=== PATIENT | female | born 2000 | race Caucasian/White ===

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

== ENCOUNTER → 2021-03-21 | Outpatient (CLI) | payer MEDICAID, SELFPAY ==
[2021-03-25 22:06] LABS: Chlamydia By Nucleic Acid AMP Negative (Negative)
[2021-03-26 12:05] LABS: Gonococcus By Nucleic Acid AMP Negative (Negative)
== END | disposition home or self-care (01) ==
LOC: LABSPEC 14:28
PROVIDERS: PCP Nurse Practitioner
DX: O98.319 Other infections with a predominantly sexual mode of transmission complicating pregnancy, unspecified trimester (principal); A56.8 Sexually transmitted chlamydial infection of other sites; A56.00 Chlamydial infection of lower genitourinary tract, unspecified; Z11.3 Encounter for screening for infections with a predominantly sexual mode of transmission; Z3A.00 Weeks of gestation of pregnancy not specified
CPT/HCPCS: 87491; 87591

== ENCOUNTER → 2021-05-20 10:18 | Outpatient (CLI) | payer MEDICAID, SELFPAY | PROVIDERS: PCP Nurse Practitioner | DX: O99.119 Other diseases of the blood and blood-forming organs and certain disorders involving the immune mechanism complicating pregnancy, unspecified trimester (principal); D68.52 Prothrombin gene mutation; I81 Portal vein thrombosis; Z3A.00 Weeks of gestation of pregnancy not specified | CPT/HCPCS: 36415 ==

== ENCOUNTER 2021-06-16 03:25 | Outpatient (CLI) | payer MEDICAID, SELFPAY ==
[2021-06-16] VITALS (33 sets, daily range): BP systolic 110–139; BP diastolic 61–82; PULSE 112–135; TEMP 36.9–37; O2SAT 97–100; BMI 28.4
[2021-06-16 04:05] LABS: Color, Urine Yellow (Yellow); Glucose, Dipstick 1000 mg/dl (Normal); Leukocyte Esterase-Dipstick 25 /ul (Negative); Nitrite-Dipstick Negative (Negative); Occult Blood-Urine Negative /ul (Negative); Protein-Dipstick 100 mg/dl (Negative); Urine Bilirubin Dipstick Negative (Negative); Urine Clarity Sl. Cloudy (Clear); Urine Urobilinogen Normal (Normal)
[2021-06-16 04:09] LABS: Ketone-Dipstick 150 mg/dl (Negative)
[2021-06-16] MEDS: Dext 5%-0.45% NS 1,000 ML 125 ML IV (04:29)
[2021-06-16 04:39] LABS: Mucous, Urine 0 SEEN /hpf (<or=2+); Red Blood Cells-Urine 0 SEEN /hpf (0-5)
[2021-06-16 04:41] LABS: Color, Urine Yellow (Yellow); Glucose, Dipstick 1000 mg/dl (Normal); Leukocyte Esterase-Dipstick Negative /ul (Negative); Nitrite-Dipstick Negative (Negative); Occult Blood-Urine Negative /ul (Negative); Protein-Dipstick 100 mg/dl (Negative); Urine Bilirubin Dipstick Negative (Negative); Urine Clarity Sl. Cloudy (Clear); Urine Urobilinogen Normal (Normal)
[2021-06-16 04:42] LABS: Ketone-Dipstick 150 mg/dl (Negative)
[2021-06-16] MEDS: 0.9% Normal Saline 1,000 ML 999 ML IV ×2 (04:45→06:14)
[2021-06-16 04:47] LABS: Bacteria 4+ /hpf (None Seen); Squamous Epithelial Cells - UA 10-25 SEEN /hpf (5-10); White Blood Cells 5-10 SEEN /hpf (0-5)
[2021-06-16 04:54] LABS: Protein:Creat Ratio 2479 mg/g CRE (0-200)
--- NOTE | 2021-06-16 04:59 | OB.TRI.HP_ITS ---
HPI - General HPI Narrative KELVIN MURPHY, is a 21 F @ 33.4 weeks, who recieves care from [facility] due to TYPE 1 DM poorly controlled. Pt reports started not feeling well around 8pm. pt reports took insulin on 06/15/21 in am but not in PM. pt reports nausea, abdominal pain, SOB. pt denies VB, LOF. Pt reports cramping. Per patient mother- pt had clots in 2016 with first - had Portal vein thrombosis/pancreatitis and now insulin dependent DM. pt has IV filter currently on lovenox. Maternal Data Information Final SABINO: 07/17/21 Gestational age: 32.4 PFSH PFSH Allergy/AdvReac Type Severity Reaction Status Date / Time vitamin K2 Allergy Hives Verified 06/16/21 04:03 Physical Exam Narrative Gen: female in bed, with rapid respirations, labored, oxygen on- unable to complete sentences Abd: gravid, non tender to palpation Limited Bedside ultrasound; RUDY wnl, VERTEX (last ultrasound per patient 06/11/21 5lb 11oz) NST FHR Rate Baby A Baseline: 160-170 bpm Variability:: Minimal Accelerations:: None Decelerations:: Variable NST Reactive:: Non-Reactive FHR Category:: Category II Uterine Activity:: were q2 min- irregular now with fluids running. Assessment & Plan (1) with care elsewhere: QUALIFIERS: Trimester: third trimester Qualified Code(s): Z34.93 - Encounter for supervision of normal , unspecified, third trimester (2) 32 weeks gestation of : (3) DKA, type 1: QUALIFIERS: Diabetes mellitus complication detail: without coma Qualified Code(s): E10.10 - Type 1 diabetes mellitus with ketoacidosis without coma (4) History of blood clots: (5) Acidosis, metabolic: PLAN: @ 32.4 weeks- presents in DKA (initial bs level 339) 1) spoke to [facility] Dr. Gonzalez at [facility]- who gave recommendations until we can transport to [facility] ICU 2) 2 IV LINES- IV Normal Saline Bolus x 2 liters with third NS at 150ml/hr with 40units KCL 3) Blood gases, CMP, CBC, coags, urine, UDS, B hydroxybutarate not able to be performed at [facility] 4) Covid testing 5) Oxygen Non rebreather- changed to NC at 4units 6) ICU bed available at [facility] until transport completed if needed 7) MFM would like [facility]opter Transport but at this time not flying- will find ground crew for transport 8) ICU at [facility] Dr. Garcia to accept patient 9) BICARB 50meq given 10) continue TOCO/FHR monitor (FHR 160s-170 minimal variability) 11) Insulin- 8units bolus given , followed by drip at 3 then changed to 5ml/hr- latest BS 324, trending down. 12) GBS was completed, FFN completed
[2021-06-16] MEDS: 0.9% Normal Saline 1,000 ML 150 ML IV (05:00)
[2021-06-16 05:01] LABS: Allen Test Positive; Base Excess -25 mmol/L (-2 to +2); Bicarbonate 3.8 mmol/L (22-26); Blood Gas Specimen Type ART; FI02 100; O2 Delivery Device NRB; PO2 177 mmHG (75-100); SITE L Radial; SO2 99 % (95-99); Total Carbon Dioxide < 5 mmol/L; pCO2 10.3 mmHg (35-45); pH 7.18 (7.35-7.45)
[2021-06-16 05:01] LABS: Amphetamine Urine VISTA NEGATIVE (<1000 ng/mL); Barbiturate Urine VISTA NEGATIVE (< 200 ng/mL); Benzodiazepine Urine VISTA NEGATIVE (< 200 ng/mL); Cocaine Urine VISTA NEGATIVE (< 300 ng/mL); Ecstacy Urine VISTA NEGATIVE (< 500 ng/mL); Methadone Urine VISTA NEGATIVE (< 300 ng/mL); PCP Urine VISTA NEGATIVE (< 25 ng/mL); THC Urine VISTA NEGATIVE (< 50 ng/mL); Vista UDS pH Range 4
[2021-06-16 05:04] LABS: Absolute Lymphocyte Count 1.16 X10^3/uL (0.83-4.51); Absolute Neutrophil Count 18.5 X10^3/uL (2.0-7.7); Basophil# 0.13 X10^3/uL; Basophil% 0.6 % (0-1); Eosinophil# 0.01 X10^3/uL; Hematocrit 43.5 % (37-47); Hemoglobin 13.5 g/dL (12.0-15.0); Lymphocyte # 1.16 X10^3/ul (0.83-4.51); Lymphocyte % 5.4 % (19-41); Mean Corpuscular Hgb 26.8 pg (27.0-32.0); Mean Corpuscular Volume 86.5 fL (81-99); Mean Platelet Vol. 11.2 fl (6.2-12.0); Monocyte# 1.12 X10^3/uL; Monocyte% 5.2 % (0-10); NRBC Flagged by Analyzer 0 % (0-5); Neutrophil # 18.52 X10^3/uL (2.7-7.7); Platelet Count 315 K/mm3 (150-450); RBC Distribution Width CV 13.2 % (11.6-14.6); RBC Distribution Width SD 40.7 fl (35.1-43.9); Red Blood Count 5.03 M/mm3 (4.2-5.4); White Blood Count 21.5 K/mm3 (4.4-11.0)
[2021-06-16] MEDS: Sodium Bicarbonate 8.4% 50 ML Syringe 50 MEQ IV (05:09)
[2021-06-16 05:30] LABS: AST(SGOT) 8 U/L (15-37); Alanine Aminotransfer ALT/SGPT 12 U/L (13-56); Bedside Glucose 331 mg/dL (70-110); Creatinine, Serum 0.85 mg/dL (0.55-1.02); EST Glomerular Filtration Rate 89 mL/min (>60); Est Glom Filt Rate - Afr Amer 107 mL/min (>60); Estimated Creatinine Clearance 93.42 ml/min; Uric Acid 5.9 mg/dL (2.6-6.0)
[2021-06-16 05:30] LABS: Bedside Glucose 339 mg/dL (70-110)
[2021-06-16 05:30] LABS: Bedside Glucose 330 mg/dL (70-110)
[2021-06-16 05:30] LABS: Bedside Glucose 324 mg/dL (70-110)
[2021-06-16 05:45] LABS: Bedside Glucose 271 mg/dL (70-110)
[2021-06-16 05:57] LABS: Anion Gap 21 (5-15); BUN 10 mg/dL (7-18); BUN/Creat Ratio 11.8 RATIO (10-20); Calcium,Total 9.1 mg/dL (8.5-10.1); Chloride 105 mmol/L (98-107); Creatinine, Serum 0.84 mg/dL (0.55-1.02); EST Glomerular Filtration Rate 89 mL/min (>60); Est Glom Filt Rate - Afr Amer 108 mL/min (>60); Estimated Creatinine Clearance 94.53 ml/min; Glucose 339 mg/dL (74-106); Potassium 4.7 mmol/L (3.5-5.1); Sodium Level 131 mmol/L (136-145)
[2021-06-16] MEDS: KCL 40mEq in 0.9% NS 40 MEQ/1,000 ML IV.SOLN 250 MEQ IV (06:14)
[2021-06-16 06:21] LABS: Bedside Glucose 254 mg/dL (70-110)
[2021-06-16 06:25] LABS: Group B Strep DNA By PCR Negative (Negative); Internal Control PASS; Specimen Processing Control PASS
[2021-06-16 06:41] LABS: Fetal Fibronectin Negative
--- NOTE | 2021-06-16 06:51 | NURSING ---
0545 physicians ambulance transport team arrived to unit. Report given to transport team. 0632 Pt off unit. being transported via squad to [facility] bed 2 [id number] Report called to Tika HOPKINS
[2021-06-16 07:37] LABS: Chlamydia Trachomatis by PCR Negative (Negative); Neisserai gonorrhoeae by PCR Negative (Negative); Probe Check PASS; Sample Adequacy Control PASS; Specimen Processing Control PASS
[2021-06-16 14:04] LABS: HIV - WCH Non-Reactive (Nonreactive); Hepatitis B Surface Antigen Non-Reactive (Nonreactive); Hepatitis C Antibody Non-Reactive (Nonreactive)
[2021-06-17 08:58] LABS: Rubella IgG Non-Reactive (Nonreactive); Syphilis Antibodies Non-reactive
== END 2021-06-16 23:59 | disposition home or self-care (01) ==
LOC: WPOUT 03:30 → WP 03:30
PROVIDERS: PCP Nurse Practitioner; Visit Provider Obstetrics & Gynecology
DX: O24.013 Pre-existing type 1 diabetes mellitus, in pregnancy, third trimester (principal); E10.10 Type 1 diabetes mellitus with ketoacidosis without coma; Z3A.33 33 weeks gestation of pregnancy; Z86.718 Personal history of other venous thrombosis and embolism
CPT/HCPCS: 96361 ×2; 96374; 36415; 36600; 59025; 59050; 76815; 80048; 80307; 81001; 81002; 82565; 82570; 82731; 82803; 82962; 84156; 84450; 84460; 84550; 85025; 86703; 86762; 86780; 86803; 86850; 86900; 86901; 87081; 87340; 87426; 87491; 87591; 87653; 99218; J7030; G0378; J7799

== ENCOUNTER → 2021-06-24 14:23 | Outpatient (CLI) | payer MEDICAID, SELFPAY ==
[2021-06-24 15:02] LABS: Protein, Urine (Random) 47.7 mg/dL (<11.9); Protein:Creat Ratio 227 mg/g CRE (0-200)
[2021-06-24 15:17] LABS: ALB/GLOB Ratio 0.5 RATIO (0.9-2.4); AST(SGOT) 13 U/L (15-37); Alanine Aminotransfer ALT/SGPT 10 U/L (13-56); Albumin, Serum 2.2 g/dL (3.2-5.0); Alkaline Phosphatase 83 U/L (45-117); Anion Gap 7 (5-15); BUN 6 mg/dL (7-18); BUN/Creat Ratio 11.5 RATIO (10-20); Calcium,Total 8.4 mg/dL (8.5-10.1); Chloride 109 mmol/L (98-107); Creatinine, Serum 0.52 mg/dL (0.55-1.02); EST Glomerular Filtration Rate 155 mL/min (>60); Est Glom Filt Rate - Afr Amer 188 mL/min (>60); Globulin 4.4 g/dL (2.2-4.2); Glucose 182 mg/dL (74-106); LDH 160 U/L (84-246); Potassium 3.7 mmol/L (3.5-5.1); Protein, Total 6.6 g/dL (6.4-8.2); Sodium Level 139 mmol/L (136-145); Uric Acid 2.8 mg/dL (2.6-6.0)
== END ==
PROVIDERS: PCP Physician Assistant Medical
DX: O24.013 Pre-existing type 1 diabetes mellitus, in pregnancy, third trimester (principal); O12.13 Gestational proteinuria, third trimester
CPT/HCPCS: 36415; 80053; 82570; 83615; 84156; 84550

== ENCOUNTER 2021-07-01 11:44 | Outpatient (CLI) | payer MEDICAID, SELFPAY ==
[2021-07-01 13:43] LABS: Hematocrit 36.8 % (37-47); Hemoglobin 11.6 g/dL (12.0-15.0); Mean Corp Hgb Conc 31.5 g/dL (32-36); Mean Corpuscular Hgb 26.7 pg (27.0-32.0); Mean Corpuscular Volume 84.6 fL (81-99); Mean Platelet Vol. 11.1 fl (6.2-12.0); Platelet Count 321 K/mm3 (150-450); RBC Distribution Width CV 12.9 % (11.6-14.6); RBC Distribution Width SD 39.6 fl (35.1-43.9); Red Blood Count 4.35 M/mm3 (4.2-5.4); White Blood Count 10.4 K/mm3 (4.4-11.0)
[2021-07-01 14:22] LABS: ALB/GLOB Ratio 0.5 RATIO (0.9-2.4); AST(SGOT) 11 U/L (15-37); Alanine Aminotransfer ALT/SGPT 9 U/L (13-56); Albumin, Serum 2.5 g/dL (3.2-5.0); Alkaline Phosphatase 96 U/L (45-117); Anion Gap 7 (5-15); BUN 11 mg/dL (7-18); BUN/Creat Ratio 17.8 RATIO (10-20); Calcium,Total 8.8 mg/dL (8.5-10.1); Chloride 105 mmol/L (98-107); Creatinine, Serum 0.62 mg/dL (0.55-1.02); EST Glomerular Filtration Rate 128 mL/min (>60); Est Glom Filt Rate - Afr Amer 155 mL/min (>60); Globulin 4.7 g/dL (2.2-4.2); Glucose 104 mg/dL (74-106); LDH 166 U/L (84-246); Potassium 3.8 mmol/L (3.5-5.1); Protein, Total 7.2 g/dL (6.4-8.2); Sodium Level 136 mmol/L (136-145); Uric Acid 3.3 mg/dL (2.6-6.0)
== END 2021-07-01 23:59 | disposition home or self-care (01) ==
PROVIDERS: PCP Physician Assistant Medical; Referring Provider Nurse Practitioner; Visit Provider Nurse Practitioner
DX: O12.10 Gestational proteinuria, unspecified trimester (principal); O24.013 Pre-existing type 1 diabetes mellitus, in pregnancy, third trimester
CPT/HCPCS: 36415; 80053; 83615; 84550; 85027

== ENCOUNTER 2023-02-21 10:14 | Emergency (ER) | payer MEDICAID, SELFPAY ==
[2023-02-21 10:15] VITALS: BP 133/85; PULSE 88; RESP 18; TEMP 36.6; O2SAT 100; BMI 28.5
--- NOTE | 2023-02-21 10:40 | US_ITS ---
HISTORY: ABDOMEN PAIN. TECHNIQUE: Clay scale and color doppler imaging was performed of the right upper quadrant. 116 images. COMPARISON: None. FINDINGS: LIVER: 50.2 cm in length. Homogeneous echotexture without focal lesion demonstrated. No intrahepatic ductal dilatation. MAIN PORTAL VEIN: Patent. COMMON BILE DUCT: 5 mm in diameter. GALLBLADDER: No gallstones. 1 mm wall thickness, within normal limits. No pericholecystic fluid. Sonographic Ken sign negative. PANCREAS: Partially obscured due to overlying bowel gas. RIGHT KIDNEY: 10.7 cm in length with a cortical thickness of 1.7 cm. No hydronephrosis or gross renal mass demonstrated. US/Gallbladder IMPRESSION: No sonographic evidence of cholelithiasis. Electronically Signed: Marivel Xiong MD at 12:12 EDT ,
[2023-02-21 10:57] LABS: Absolute Lymphocyte Count 2.82 X10^3/uL (0.83-4.51); Absolute Neutrophil Count 5.3 X10^3/uL (2.0-7.7); Basophil# 0.05 X10^3/uL; Basophil% 0.6 % (0-1); Eosinophils% 2.3 % (0-5); Hematocrit 39.7 % (37-47); Hemoglobin 12.5 g/dL (12.0-15.0); Lymphocyte # 2.82 X10^3/ul (0.83-4.51); Lymphocyte % 32.2 % (19-41); Mean Corp Hgb Conc 31.5 g/dL (32-36); Mean Corpuscular Hgb 27.4 pg (27.0-32.0); Mean Corpuscular Volume 87.1 fL (81-99); Mean Platelet Vol. 10.4 fl (6.2-12.0); Monocyte# 0.38 X10^3/uL; Monocyte% 4.3 % (0-10); NRBC Flagged by Analyzer 0 % (0-5); Neutrophil # 5.28 X10^3/uL (2.7-7.7); Neutrophil % 60.3 % (47-70); Platelet Count 274 K/mm3 (150-450); RBC Distribution Width CV 12.7 % (11.6-14.6); Red Blood Count 4.56 M/mm3 (4.2-5.4); White Blood Count 8.8 K/mm3 (4.4-11.0)
[2023-02-21 11:12] LABS: Internal QC Validated? YES +Cl - CLEAR BKGD; Pregnancy, Serum, hCG Quali. NEGATIVE Negative; Record Kit Lot#, Serum Preg. HCG0000667200
[2023-02-21 11:17] LABS: ALB/GLOB Ratio 0.9 RATIO (0.9-2.4); AST(SGOT) 8 U/L (15-37); Alanine Aminotransfer ALT/SGPT 16 U/L (13-56); Albumin, Serum 3.5 g/dL (3.2-5.0); Alkaline Phosphatase 50 U/L (45-117); Anion Gap 5 (5-15); BUN 10 mg/dL (7-18); BUN/Creat Ratio 17.1 RATIO (10-20); Calcium,Total 8.7 mg/dL (8.5-10.1); Chloride 107 mmol/L (98-107); Creatinine, Serum 0.59 mg/dL (0.55-1.02); EST Glomerular Filtration Rate 134 mL/min (>60); Est Glom Filt Rate - Afr Amer 162 mL/min (>60); Estimated Creatinine Clearance 133.44 ml/min; Globulin 3.7 g/dL (2.2-4.2); Glucose 131 mg/dL (74-106); Lipase 10 U/L (13-75); Potassium 3.5 mmol/L (3.5-5.1); Protein, Total 7.2 g/dL (6.4-8.2); Sodium Level 138 mmol/L (136-145)
--- NOTE | 2023-02-21 11:47 | EDS_ITS ---
HPI HPI - GI History of Present Illness Chief Complaint: Abd Pain Informant: patient Narrative Narrative: This with a chief complaint of abdominal pain. Patient states that for the last couple months or so she has been getting pain in the upper part of her abdomen. She is also noted that she has had sulfur belching and occasional soft stools. The pain really comes on after eating. If she is not eating she is not really hurting. She did see her doctor. They thought this may be GERD because of the location of the pain and other symptoms. But she has been on omeprazole now for about 4 weeks and there is been no change at all. She does have a history of having what sounds like gallstone pancreatitis once. But that was about 7 years ago. She is not actually having pain now. But she states now every time she eats she gets discomfort she gets bloating and she occasionally will get nauseated and has even vomited. Her primary concern is that this is not pancreatitis because evidently she got quite ill with that. But again she has no pain now and has no back pain. Has had tubal ligation as well as C-sections. 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 Home Medications acetaminophen 500 mg oral powder packet (Tylenol Extra Strength) 500 mg PO Q6H PRN 03/18/22 [History Last Taken Unknown] OneTouch Verio test strips (blood sugar diagnostic) #150 ea 07/08/22 [Rx Last Taken Unknown] pen needle, diabetic 32 gauge x 5/32 (BD Ultra-Fine Loyda Pen Needle) #150 ea 11/17/22 [Rx Last Taken Unknown] insulin aspart U-100 100 unit/mL subcutaneous solution 40 unit (0.4 mL) subcut TID #36 mL 12/29/22 [Rx Last Taken Unknown] insulin syringe-needle U-100 0.5 mL 31 gauge x 5/16 (BD Insulin Syringe Ultra- Fine) #100 ea 12/29/22 [Rx Last Taken Unknown] L.acidoph, paracasei,B. lactis 10 billion cell capsule (Digestive Advantage Advanced Probiotic) 10,000,000 cell PO DAILY 02/12/23 [History Last Taken Unknown] blood-glucose sensor (FreeStyle Adan 3 Sensor device) #6 ea 02/12/23 [Rx Last Taken Unknown] digestive enzymes 1 cap PO DAILY 02/12/23 [History Last Taken Unknown] insulin glargine 100 unit/mL subcutaneous solution (Lantus U-100 Insulin) 15 unit subcut DAILY 02/12/23 [History Last Taken Unknown] omeprazole 20 mg capsule,delayed release 20 mg PO DAILY 02/12/23 [History Last Taken Unknown] metoclopramide HCl 10 mg tablet (Reglan) 10 mg PO Q6H PRN nausea and vomiting #20 tabs 02/21/23 [Rx Last Taken Unknown] Allergy/AdvReac Type Severity Reaction Status Date / Time poison jeevan extract Allergy Severe Swelling Verified 02/21/23 10:17 menaquinone-7 (vitamin K2) Allergy Hives Verified 02/21/23 10:17 [vitamin K2] Family History Mother Anxiety Grandmother Breast cancer paternal Grandfather CVA (cerebral vascular accident) maternal Myocardial infarction maternal Grandmother Cancer great grandmother Sister Thyroid disorder Thyroid cancer Surgical History Delivery by section Social History number of children: 3 Smoking Status: Never smoker alcohol intake: current alcohol intake frequency: holidays/special occasions only Alcohol type: wine substance use type: does not use diet: diabetic what type of physical activity do you participate in: walking frequency: daily ROS ROS ED ROS Narrative A complete review of systems was performed and is negative except as documented in the history of present illness. Some specific details below. Constitutional: No recent fevers or chills. EYE: No visual complaints or pain. ENT: No difficulty swallowing. No swelling. No pain. No sour taste in mouth. No response to medications for GERD. CV: No chest pain or palpitations. Respiratory: No dyspnea. No hemoptysis. No difficulty taking breaths. GI: Please see history of present illness. : No frequency dysuria or hematuria. Musculoskeletal: No recent trauma. No pains. Skin: No rash. Nondiaphoretic. Neuro: No weakness or numbness. Endocrine: No polyuria or polydipsia. EXAM Physical Exam Narrative Exam Narrative: CONSTITUTIONAL: Patient is nontoxic in appearance. The patient looks comfortable. HEENT: No notable trauma. Mucous membranes moist. No sinus tenderness. No indication of pain with swallowing. EYES: No conjunctival injection. No proptosis. CARDIOVASCULAR: Regular rate. Regular rhythm. No notable murmur. No JVD. RESPIRATORY: No respiratory distress. Breathing is unlabored. No wheezes. No rhonchi. No rales. No pain with a deep breath. GASTROINTESTINAL: Not distended. Bowel sounds are normal. No tenderness. No guarding. No rebound. No palpable mass. No bruit. Overall her abdomen is actually benign at this time. GENITOURINARY: No tenderness over the bladder. No CVA tenderness. MUSCULOSKELETAL: Atraumatic. No peripheral edema. No cord. No tenderness along the deep venous system. No asymmetry. NEUROLOGICAL: Patient is alert and appropriate. No focal deficit noted. SKIN: No noted rashes. No diaphoresis. PSYCHIATRIC: Patient is calm. Mood is appropriate. Const Vital Signs: 02/21/23 10:15 Temperature 97.9 F Temperature Source Temporal Pulse Rate 88 Respiratory Rate 18 Blood Pressure 133/85 H Blood Pressure Mean 101 Pulse Ox 100 Oxygen Delivery Method Room Air MDM MDM MDM Narrative Medical decision making narrative: Patient CBC shows no acute abnormalities. White count and platelets are normal. Patient's electrolytes show no acute abnormalities. Minimal elevation of glucose at 131. Patient's liver function test are normal. Patient's lipase is normal. Patient's serum is negative. Patient's right upper quadrant ultrasound shows no gallstones or acute process. Bladder wall is normal thickness. Patient is still comfortable. She has epigastric discomfort with bloating since every time she eats. She has been diabetic for 7 years. She has an appointment with gastroenterology locally here coming up. But she has not heard back on the exact date and is not sure of the name. I will try her on [facility] to see if this helps as gastroparesis may be one of the contributing issues here. We discussed reasons that would prompt return. Lab Data Attestation: I reviewed the patient's lab results. Labs: Laboratory Results - last 24 hr 02/21/23 10:45 WBC 8.8 RBC 4.56 Hgb 12.5 Hct 39.7 MCV 87.1 MCH 27.4 MCHC 31.5 L RDW Std Deviation 40.0 RDW Coeff of Alberto 12.7 Plt Count 274 MPV 10.4 Immature Gran % (Auto) 0.300 Neut % (Auto) 60.3 Lymph % (Auto) 32.2 [place] % (Auto) 4.3 Eos % (Auto) 2.3 Baso % (Auto) 0.6 Absolute Neuts (auto) 5.3 Absolute Lymphs (auto) 2.82 Nucleated RBC % 0 Sodium 138 Potassium 3.5 Chloride 107 Carbon Dioxide 26.0 Anion Gap 5 BUN 10 Creatinine 0.59 Estim Creat Clear Calc 133.44 Est GFR (MDRD) Af Amer 162 Est GFR (MDRD) Non-Af 134 BUN/Creatinine Ratio 17.1 Glucose 131 H Calcium 8.7 Total Bilirubin 0.30 AST 8 L ALT 16 Alkaline Phosphatase 50 Total Protein 7.2 Albumin 3.5 Globulin 3.7 Albumin/Globulin Ratio 0.9 Lipase 10 L Serum , Qual NEGATIVE Radiography Diagnostic Testing: Clinical Impression(s) from Imaging Studies Gallbladder Ultrasound 02/21/23 10:40 IMPRESSION: No sonographic evidence of cholelithiasis. Electronically Signed: Marivel Xiong MD at 12:12 EDT Reading Location ID and State: [facility] / [place] Tel , Service support , Discharge Plan Triage Chief Complaint: Abd Pain ED Provider: Kermit Alejandre Dx/Rx/DC Orders Clinical Impression: Generalized postprandial abdominal pain, History of diabetes mellitus Instructions: ED Diabetic Gastroparesis Prescriptions: New metoclopramide HCl [Reglan] 10 mg tablet 10 mg PO Q6H PRN (Reason: nausea and vomiting) Qty: 20 0RF No Action Tylenol Extra Strength 500 mg powder in packet 500 mg PO Q6H PRN (DME) OneTouch Verio test strips Strip See Rx Instructions .Route Qty: 150 6RF Rx Instructions: 4 times daily insulin glargine [Lantus U-100 Insulin] 100 unit/mL solution 15 unit subcut DAILY omeprazole 20 mg capsule,delayed release(DR/EC) 20 mg PO DAILY Patient Comments: take 1 capsule by mouth once daily digestive enzymes Capsule 1 cap PO DAILY Rx Instructions: administer with food; swallow whole; do not crush/chew/dissolve/break/cut Digestive Advantage Advanced 10 billion cell capsule 10,000,000 cell PO DAILY (DME) FreeStyle Adan 3 Sensor Device See Rx Instructions .Route Qty: 6 1RF Rx Instructions: 1 sensor q 14 days (DME) pen needle, diabetic [BD Ultra-Fine Loyda Pen Needle] 32 gauge x 5/32 needle See Rx Instructions .ROUTE .MEDSUPPLY Qty: 150 4RF Rx Instructions: 4 times daily insulin aspart U-100 100 unit/mL solution 40 unit subcut TID Qty: 36 5RF (DME) insulin syringe-needle U-100 [BD Insulin Syringe Ultra-Fine] 0.5 mL 31 gauge x 5/16 syringe See Rx Instructions .Route Qty: 100 5RF Rx Instructions: 4x/day Primary Care Provider: Em Rai Referrals: Em Rai PA [Primary Care Provider] - 3-5 Days Disposition Disposition: Home, Self Care
== END 2023-02-21 12:49 | disposition home or self-care (01) ==
PROVIDERS: Emergency Provider Emergency Medicine; PCP Physician Assistant Medical; Visit Provider Emergency Medicine
DX: R10.84 Generalized abdominal pain (principal); E10.43 Type 1 diabetes mellitus with diabetic autonomic (poly)neuropathy; E10.65 Type 1 diabetes mellitus with hyperglycemia; Z79.899 Other long term (current) drug therapy; K31.84 Gastroparesis
CPT/HCPCS: 76705; 80053; 83690; 84703; 85025; 99283; A4216

== ENCOUNTER 2024-09-27 16:29 | Inpatient (IN) | payer MEDICAID, SELFPAY ==
[2024-09-27] VITALS (9 sets, daily range): BP systolic 112–163; BP diastolic 63–93; PULSE 92–119; RESP 15–20; TEMP 35.5–36.6; O2SAT 99–100; BMI 22.4; BMI 22.6
--- NOTE | 2024-09-27 16:48 | EDS_ITS ---
HPI HPI - GI History of Present Illness Chief Complaint: Nausea/Vomiting Informant: patient Nausea/Vomiting/Emesis GI Symptom: Positive for Nausea and Vomiting Onset: Days Severity: Moderate Diarrhea/Melena/Hematochezia GI Symptom: Positive for Diarrhea Onset: Days Stool Quality: Positive for Loose Severity: Moderate Associated Symptoms Associated Symptoms: Negative for Dysuria, Frequency, Hematuria or Urgency Narrative Narrative: 24-year-old female history of diabetes, clotting disorder DVTs and chronic headaches. States that she has had nausea and vomiting since Thursday with a headache. Is typical for one of her headaches. Denies any trauma. No fever. He is on no blood thinners. Has been in the past with a DVT but is not currently and has not been recently. Denies any dysuria. Really no abdominal pain. 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 Coma DVT (deep venous thrombosis) History of blood clots Home Medications ?Medication ?Instructions ?Recorded ?Last Taken ?Type insulin glargine 100 unit/mL (3 15 unit (0.15 mL) subc ut QAM #15 mL 11/30/23 09/27/24 Rx mL) subcutaneous pen (Lantus Solostar U-100 Insulin) OneTouch Verio test strips (blood #150 ea 01/04/24 Unk nown Rx sugar diagnostic) blood-glucose sensor (FreeStyle #2 ea 02/02/24 Unknown Rx Adan 3 Plus Sensor device) FreeStyle Adan 3 Sensor #2 ea 08/01/24 Unknown Rx (blood-glucose sensor) insulin aspart U-100 100 unit/mL 12 unit (0.12 mL) sub cut TID #12 mL 08/01/24 09/27/24 Rx (3 mL) subcutaneous pen (Novolog FlexPen U-100 Insulin aspart) pen needle, diabetic 32 gauge x #150 ea 08/01/24 Unkno wn Rx (BD Ultra-Fine Loyda Pen Needle) FreeStyle Adan 2 Plus Sensor #2 ea 08/05/24 Unknown R x (blood-glucose sensor) insulin pump cartridge,auto #1 ea 08/05/24 Unknown Rx dose,BT,G6/L2 with controller subcutaneous (Omnipod 5 Intro Kit(G6/[id number]) subcutaneous cartridge) acetaminophen 500 mg tablet 1,000 mg PO Q6H PRN pain 0 09/27/24 Unknown History Allergy/AdvReac Type Severity Reaction Status Date / Time poison jeevan extract Allergy Severe Swelling Verified 09/27/24 16:30 menaquinone-7 (vitamin K2) Allergy Hives Verified 09/27/24 16:30 (vitamin K2) Family History Mother Anxiety Grandmother Breast cancer paternal Grandfather CVA (cerebral vascular accident) maternal Myocardial infarction maternal Grandmother Cancer great grandmother Sister Thyroid disorder Thyroid cancer Surgical History Delivery by section Social History number of children: 3 Smoking Status: Never smoker alcohol intake: current alcohol intake frequency: holidays/special occasions only Alcohol type: wine substance use type: does not use diet: diabetic what type of physical activity do you participate in: walking frequency: daily ROS ROS ED ROS Narrative Nausea, vomiting and diarrhea. Headache. Constitutional Constitutional ED: Denies chills or fever(s) ENT ENT ED: Denies ear pain Cardiovascular Cardiovascular: Denies chest pain Respiratory/Chest Respiratory/Chest: Denies cough or dyspnea Gastrointestinal Gastrointestinal: Reports diarrhea, nausea and vomiting; Denies abdominal pain, constipation or melena Genitourinary Genitourinary ED: Denies dysuria or hematuria Musculoskeletal Musculoskeletal: Denies arthralgias or back pain Integumentary Denies abscess Neurologic Neurologic: Reports headache(s) Psychiatric Psychiatric: Denies anxiety Endocrine Endocrinology: Denies polydipsia Hematologic/Lymphatic Hematologic/Lymphatic: Denies easy bleeding, easy bruising or lymphadenopathy Allergic/Immunologic Allergic/Immunologic ED: Denies mouth swelling, tongue swelling or urticaria EXAM Physical Exam Narrative Exam Narrative: 24-year-old female vital signs stable afebrile. Appears like she does not feel well. Does not look septic. H EENT exam pupils round reactive light. No facial droop. No trauma. Dry mucous membranes. Neck nontender no JVD no meningismus. No lymphadenopathy. Able to touch chin to chest. Lungs clear to auscultation bilaterally. Heart tachycardic 120 no murmur. Chest wall ribs nontender. Abdomen soft, nontender, nondistended, normal bowel sounds without peritoneal signs. Moving all 4 extremities. Nontender no edema. Normal strength. Normal range of motion. Back nontender. Neurologically she is awake alert. Answer questions following commands. No focal motor deficits. Const Vital Signs: 09/27/24 16:30 09/27/24 18:16 09/27/24 18:30 Temperature 96 F L 97.8 F Temperature Source Temporal Pulse Rate 119 H 108 H 112 H Respiratory Rate 20 H 15 17 Blood Pressure 130/92 H 114/71 128/80 H Blood Pressure Mean 104 85 96 Pulse Ox 100 100 100 Oxygen Delivery Method Room Air Room Air Positive well nourished and well developed; Negative for obese, cachectic, contractures or unkempt Constitutional Narrative: Dehydrated. General Appearance ED: well developed; Negative for unkempt, cachectic, contractures or NAD Nutritional Appearance: Negative for cachectic or obese HEENT Reports dry mucous membranes normocephalic and atraumatic Mouth ED: Yes dry mucous membranes Mouth: dry mucous membranes Eyes PERRL and EOMs intact bilaterally Neck no lymphadenopathy, supple and no JVD Resp normal respiratory effort and clear to auscultation bilaterally Cardio regular rhythm, S1 normal heart sound, S2 normal heart sound and no murmurs; Neg ative for regular rate Rate: tachycardic GI non-tender, non-distended and no masses Inspection: Negative for abdominal distention Auscultation: normoactive bowel sounds Palpation: soft; Negative for tender, guarding, hernia, mass or rebound tenderness present Back/Spine no CVA tenderness General Back: Negative for CVA tenderness Cervical Spine: Negative for cervical spine tenderness Thoracic Spine / Upper Back: Negative for thoracic spinal tenderness Lumbar Spine / Lower Back: Negative for lumbar spinal tenderness Coccyx: Negative for other Extremity full ROM General Extremety ED: Negative for edema or tenderness General Extremity: Negative for edema Neuro CN's II-XII intact bilaterally and moves all extremities Sensorium / Orientation: alert, oriented to person, oriented to place and oriented to time; Negative for orientation impaired, confused or lethargic Motor Exam: strength 5/5 throughout Psych mental status grossly normal and thought process normal Appearance: Negative for unkempt Skin no wounds General Skin Exam: Negative for jaundice Lesions: no lesions Rashes: no rashes Trauma: Negative for abrasion MDM MDM MDM Narrative Medical decision making narrative: 24-year-old female suspect viral gastroenteritis with nausea vomiting diarrhea. Clinical looks mildly dehydrated. Treated with IV fluids. Zofran. She gets chronic headaches to be given Toradol for that along with the fluids and the Zofran. Screening labs to be obtained. She has no abdominal tenderness. She does not need CAT scan or imaging. Repeat exam around 5:50 PM. Patient is actually feeling better with the IV fluids. Headache is resolved with the Toradol and IV fluids. I went over her test with her she appears to be in DKA. She is being started on insulin drip I will add a second liter of normal saline. I have the hospitalist on page for admission. Prior to going upstairs for admission patient has had some mild swelling to the left upper lip. No tongue swelling. No stridor or inability to handle her secretions. I reassessed her at 7:40 PM. This does look like early angioedema. We only gave her insulin, saline, Toradol and Zofran. She has no allergies to those that she is aware of. She will be treated with Solu-Medrol and Benadryl to prevent this from getting worse. History & Record Review Discussion w/independent historian: Patient Additional record(s) reviewed:: Prior inpatient record, Prior outpatient record, Prior ED visit and Prior labs Lab Data Attestation: I reviewed the patient's lab results. Lab results narrative: CBC shows a white count 29.6. H&H 15 and 48. Platelets 464. Electrolytes shows sodium 134. Gap of 29. BUN and creatinine of 13 and 1. Glucose 459. Potassium is normal at 4.3. Labs: Laboratory Results - last 24 hr 09/27/24 09/27/24 16:45 18:13 WBC 29.6 H RBC 5.54 H Hgb 15.3 H Hct 48.6 H MCV 87.7 MCH 27.6 MCHC 31.5 L RDW Std Deviation 40.4 RDW Coeff of Alberto 12.5 Plt Count 464 H MPV 10.9 Immature Gran % (Auto) ASSISTANT MANAGER BILINGUAL Neut % (Auto) ASSISTANT MANAGER BILINGUAL Lymph % (Auto) ASSISTANT MANAGER BILINGUAL [place] % (Auto) ASSISTANT MANAGER BILINGUAL Eos % (Auto) ASSISTANT MANAGER BILINGUAL Baso % (Auto) ASSISTANT MANAGER BILINGUAL Absolute Neuts (auto) 25.8 H Absolute Lymphs (auto) 2.07 Total Counted 100 Neutrophils % (Manual) 87 H Lymphocytes % (Manual) 7 L Monocytes % (Manual) 1 Eosinophils % (Manual) 2 Metamyelocytes % 2 H Promyelocytes % 1 H Nucleated RBC % 0 Diff Path Review May foll Platelet Estimate [employer] Sodium 134 Potassium 4.3 Chloride 97 L Carbon Dioxide 8.4 L* Anion Gap 29 H BUN 13 Creatinine 1.06 Estim Creat Clear Calc 73.01 Est GFR (MDRD) Non-Af 75 BUN/Creatinine Ratio 12.5 Glucose 459 H* Calcium 9.7 POC Glucose 435 H Rhythm Strip Rhythm Strip: Sinus Tach Rate: 109 Ectopy: None EKG Initial EKG: Attestation: I personally reviewed and interpreted this EKG as follows: Interpretation: Sinus Tachycardia Comments: Sinus tachycardia rate of 109 no acute signs of NE or ischemia. Critical Care Time Critical Care Time: Yes Critical care time (excluding procedures): 30-74 minutes, Including time spent:, Discussing w/Patient &/or Family/Personal Computer Network Engineer, Discussing w/Consultants, Arranging Admission or Transfer, Performing Direct Patient Care at Bedside and - (35 minutes.) Discharge Plan Dx/Rx/DC Orders Clinical Impression: Diabetic ketoacidosis, Nausea & vomiting, Leukocytosis Disposition Disposition: Acute Care [facility]
[2024-09-27] MEDS: Ketorolac 30 MG/ML Syringe IV (16:56)
[2024-09-27] MEDS: 0.9% Normal Saline (1000mL) 1,000 ML 999 ML IV ×3 (16:56→20:38)
[2024-09-27] MEDS: Ondansetron 4 MG/2 ML Vial IV (16:56)
[2024-09-27 17:15] LABS: Basophil# 0.25 X10^3/uL; Eosinophil# 0.01 X10^3/uL; Hematocrit 48.6 % (37-47); Hemoglobin 15.3 g/dL (12.0-15.0); Mean Corp Hgb Conc 31.5 g/dL (32-36); Mean Corpuscular Hgb 27.6 pg (27.0-32.0); Mean Corpuscular Volume 87.7 fL (81-99); Mean Platelet Vol. 10.9 fl (6.2-12.0); Monocyte# 0.65 X10^3/uL; NRBC Flagged by Analyzer 0 % (0-5); POSITIVE DIFFERENTIAL YES; Platelet Count 464 K/mm3 (150-450); RBC Distribution Width CV 12.5 % (11.6-14.6); RBC Distribution Width SD 40.4 fl (35.1-43.9); Red Blood Count 5.54 M/mm3 (4.2-5.4); White Blood Count 29.6 K/mm3 (4.4-11.0)
[2024-09-27 17:28] LABS: Anion Gap 29 (5-15); BUN 13 mg/dL (4-19); BUN/Creat Ratio 12.5 RATIO (10-20); Calcium,Total 9.7 mg/dL (7.6-11.0); Chloride 97 mmol/L (98-108); Creatinine, Serum 1.06 mg/dL (0.70-1.20); EST Glomerular Filtration Rate 75 (>60); Estimated Creatinine Clearance 73.01 ml/min (50-250); Potassium 4.3 mmol/L (3.3-5.1); Sodium Level 134 mmol/L (133-145)
[2024-09-27 17:38] LABS: Differential Indicated SCAN CRITERIA MET
[2024-09-27 17:43] LABS: Carbon Dioxide 8.4 mmol/L (21.0-32.0); Glucose 459 mg/dL (70-99)
--- NOTE | 2024-09-27 17:45 | EKG12_ITS ---
Test Reason : GENERAL Blood Pressure : */* mmHG Vent. Rate : 109 BPM Atrial Rate : 109 BPM P-R Int : 180 ms QRS Dur : 82 ms QT Int : 322 ms P-R-T Axes : 79 83 52 degrees QTcB Int : 433 ms Sinus tachycardia Cannot rule out Septal infarct , age undetermined Abnormal ECG Confirmed by Wilmer Nelson ([id number]), sports editor JESUS JACK ([id number]) on 09/30/2024 12:05:02 PM Referred By: KAYLEIGH Confirmed By: Wilmer Nelson
[2024-09-27] MEDS: Insulin Lispro 100 UNIT in 0.9% Normal Saline (100mL Bag) 99 ML 6.1 UNIT CONT INF (18:13)
[2024-09-27 18:37] LABS: Bedside Glucose 435 mg/dL (74-106)
--- NOTE | 2024-09-27 19:10 | HP.PCM.HOS_ITS ---
HPI - General General Date of Admission: 09/27/24 Date of Service: 09/27/24 Chief Complaint: Nausea vomiting diarrhea headache HPI Narrative SERENITY KATHERINE, is a 24 F who presents with several day history of nausea vomiting diarrhea and headache. Patient is type I diabetic who has been checking her sugars as well as taking her insulin but still her blood sugars have remained high. Presented to the emergency room where she was found to be in DKA. Patient started on IV fluids as well as insulin drip. By the time I had seen her she was actually feeling better. Patient states that she has only had DKA once before. 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 Coma DVT (deep venous thrombosis) History of blood clots Home Medications ?Medication ?Instructions ?Recorded ?Last Taken ?Type insulin glargine 100 unit/mL (3 15 unit (0.15 mL) subc ut QAM #15 mL 11/30/23 09/27/24 Rx mL) subcutaneous pen (Lantus Solostar U-100 Insulin) OneTouch Verio test strips (blood #150 ea 01/04/24 Unk nown Rx sugar diagnostic) blood-glucose sensor (FreeStyle #2 ea 02/02/24 Unknown Rx Adan 3 Plus Sensor device) FreeStyle Adan 3 Sensor #2 ea 08/01/24 Unknown Rx (blood-glucose sensor) insulin aspart U-100 100 unit/mL 12 unit (0.12 mL) sub cut TID #12 mL 08/01/24 09/27/24 Rx (3 mL) subcutaneous pen (Novolog FlexPen U-100 Insulin aspart) pen needle, diabetic 32 gauge x #150 ea 08/01/24 Unkno wn Rx /32 (BD Ultra-Fine Loyda Pen Needle) FreeStyle Adan 2 Plus Sensor #2 ea 08/05/24 Unknown R x (blood-glucose sensor) insulin pump cartridge,auto #1 ea 08/05/24 Unknown Rx dose,BT,G6/L2 with controller subcutaneous (Omnipod 5 Intro Kit(G6/[id number]) subcutaneous cartridge) acetaminophen 500 mg tablet 1,000 mg PO Q6H PRN pain 0 09/27/24 Unknown History Allergy/AdvReac Type Severity Reaction Status Date / Time poison jeevan extract Allergy Severe Swelling Verified 09/27/24 16:30 menaquinone-7 (vitamin K2) Allergy Hives Verified 09/27/24 16:30 (vitamin K2) Family History Mother Anxiety Grandmother Breast cancer paternal Grandfather CVA (cerebral vascular accident) maternal Myocardial infarction maternal Grandmother Cancer great grandmother Sister Thyroid disorder Thyroid cancer Surgical History Delivery by section Social History number of children: 3 Smoking Status: Never smoker alcohol intake: current alcohol intake frequency: holidays/special occasions only Alcohol type: wine substance use type: does not use diet: diabetic what type of physical activity do you participate in: walking frequency: daily ROS ROS Narrative All review of systems were negative except as mentioned above in the history of present illness and the other review of systems. Vital Signs Vital Signs Vital Signs: 09/27/24 16:30 09/27/24 18:16 09/27/24 18:30 Temperature 35.5 C L 36.6 C Temperature Source Temporal Pulse Rate 119 H 108 H 112 H Respiratory Rate 20 H 15 17 Blood Pressure 130/92 H 114/71 128/80 H Blood Pressure Mean 104 85 96 Pulse Ox 100 100 100 Oxygen Delivery Method Room Air Room Air Weight Weight: 61.19 kg Body Mass Index (BMI) 22.4 Physical Exam Const alert and no apparent distress HEENT normocephalic and head/scalp atraumatic Resp normal respiratory effort, no retractions, no use of accessory muscles and clear to auscultation bilaterally Cardio regular rate, regular rhythm, S1 normal heart sound and S2 normal heart sound GI normal to inspection, nondistended, normoactive bowel sounds, soft to palpation, non-tender and non-distended Extremity normal to inspection Psych affect normal Results Lab / Micro Data 09/27/24 16:45 09/27/24 16:45 Labs: Laboratory Results - last 24 hr 09/27/24 16:45: WBC 29.6 H, RBC 5.54 H, Hgb 15.3 H, Hct 48.6 H, MCV 87.7, MCH 27.6, MCHC 31.5 L, RDW Std Deviation 40.4, RDW Coeff of Alberto 12.5, Plt Count 464 H, MPV 10.9, Immature Gran % (Auto) 3.500 H, Neut % (Auto) 84.5 H, Lymph % (Auto) 9.0 L, [place] % (Auto) 2.2, Eos % (Auto) 0.0, Baso % (Auto) 0.8, Absolute Neuts (auto) 25.0 H, Absolute Lymphs (auto) 2.68, Nucleated RBC % 0, Sodium 134, Potassium 4.3, Chloride 97 L, Carbon Dioxide 8.4 L*, Anion Gap 29 H, BUN 13, Creatinine 1.06, Estim Creat Clear Calc 73.01, Est GFR (MDRD) Non-Af 75, BUN/Creatinine Ratio 12.5, Glucose 459 H*, Calcium 9.7 09/27/24 18:13: POC Glucose 435 H Rhythm Strip Rhythm Strip: Sinus Tach Rate: 109 Ectopy: None Assessment & Plan Assessment/Plan (1) Diabetic ketoacidosis: PLAN: IV fluids. Insulin drip. When she did her gap is been cleared then she can resume her insulin glargine as well as prandial insulin. Patient does have an insulin pump at home but she has not been started on that because she has not had teaching yet. PLAN: Plan Migraine: Currently improved. Continue with acetaminophen. Will check test and if negative then we can give her ketorolac. VTE prophylaxis with enoxaparin. Charges/Coding Visit Charges Inpatient E&M: 46548 Init Hosp L2
[2024-09-27 19:18] LABS: Eosinophil 2 % (0-5); Lymphocyte 7 % (19-41); Metamyelocyte 2 % (0-1); Monocyte 1 % (0-10); Neutrophil-Segmented 87 % (47-70); Promyelocyte 1 % (0-0); Total Cells Counted 100 (MANUAL DIFF)
[2024-09-27 19:19] LABS: Platelet Estimate SLT INC (ADEQ); Scan Smear per Review Criteria MANUAL DIFF
[2024-09-27 19:20] LABS: Neutrophil # 25.75 X10^3/uL (2.7-7.7)
[2024-09-27 19:21] LABS: Absolute Lymphocyte Count 2.07 X10^3/uL (0.83-4.51); Absolute Neutrophil Count 25.8 X10^3/uL (2.0-7.7); Lymphocyte # 2.07 X10^3/ul (0.83-4.51)
[2024-09-27 19:22] LABS: Pathologist Review May foll
[2024-09-27 19:34] LABS: Bedside Glucose 331 mg/dL (74-106)
[2024-09-27 19:36] LABS: Bacteria 0 SEEN /hpf (None Seen); Mucous, Urine 0 SEEN /hpf (<or=2+)
[2024-09-27 19:42] LABS: Color, Urine Straw (Yellow); Glucose, Dipstick 1000 mg/dl (Normal); Leukocyte Esterase-Dipstick Negative /ul (Negative); Nitrite-Dipstick Negative (Negative); Occult Blood-Urine 10 /ul (Negative); Protein-Dipstick 100 mg/dl (Negative); Specific Gravity, Urine 1.025 (1.002-1.030); Urine Bilirubin Dipstick Negative (Negative); Urine Clarity Clear (Clear); Urine Urobilinogen Normal (Normal)
[2024-09-27 19:46] LABS: Ketone-Dipstick 150 mg/dl (Negative)
[2024-09-27] MEDS: DiphenhydrAMINE 50 MG/ML Syringe 25 MG IV (19:49)
[2024-09-27] MEDS: MethylPREDNISolone 125 MG/2 ML Vial IV (19:52)
[2024-09-27 19:58] LABS: Red Blood Cells-Urine 0-5 SEEN /hpf (0-5); Squamous Epithelial Cells - UA 10-25 SEEN /hpf (5-10); White Blood Cells 0-5 SEEN /hpf (0-5)
[2024-09-27 19:58] LABS: BETA-HYDROXYBUTYRATE 5.4 mmol/L (0.0-0.3)
[2024-09-27 19:59] LABS: Anion Gap 22 (5-15); BUN 13 mg/dL (4-19); BUN/Creat Ratio 15.4 RATIO (10-20); Calcium,Total 8.3 mg/dL (7.6-11.0); Carbon Dioxide 8.3 mmol/L (21.0-32.0); Chloride 107 mmol/L (98-108); Creatinine, Serum 0.85 mg/dL (0.70-1.20); EST Glomerular Filtration Rate 97 (>60); Estimated Creatinine Clearance 91.04 ml/min (50-250); Glucose 324 mg/dL (70-99); Potassium 4.2 mmol/L (3.3-5.1); Sodium Level 137 mmol/L (133-145)
[2024-09-27 20:00] LABS: Internal QC Validated? YES +Cl - CLEAR BKGD; Pregnancy, Urine Negative Negative; Record Kit Lot#,Urine Preg 929381
[2024-09-27 20:01] LABS: Anion Gap 22 (5-15); BUN 13 mg/dL (4-19); BUN/Creat Ratio 15.6 RATIO (10-20); Calcium,Total 8.5 mg/dL (7.6-11.0); Carbon Dioxide 8.3 mmol/L (21.0-32.0); Chloride 107 mmol/L (98-108); Creatinine, Serum 0.83 mg/dL (0.70-1.20); EST Glomerular Filtration Rate 100 (>60); Estimated Creatinine Clearance 93.24 ml/min (50-250); Glucose 326 mg/dL (70-99); Potassium 4.2 mmol/L (3.3-5.1); Sodium Level 138 mmol/L (133-145)
[2024-09-27] MEDS: Dext 5%-0.45% NS 1,000 ML 250 ML IV (22:07)
[2024-09-27] MEDS: 0.9% Normal Saline (1000mL) 1,000 ML 500 ML IV (22:07)
[2024-09-27 22:16] LABS: BUN 13 mg/dL (4-19); BUN/Creat Ratio 15.5 RATIO (10-20); Calcium,Total 8.4 mg/dL (7.6-11.0); Chloride 108 mmol/L (98-108); Creatinine, Serum 0.83 mg/dL (0.70-1.20); EST Glomerular Filtration Rate 100 (>60); Estimated Creatinine Clearance 93.24 ml/min (50-250); Glucose 304 mg/dL (70-99); Potassium 4.3 mmol/L (3.3-5.1); Sodium Level 136 mmol/L (133-145)
[2024-09-27 22:26] LABS: Anion Gap 21 (5-15); Carbon Dioxide 7.6 mmol/L (21.0-32.0)
[2024-09-27 23:38] LABS: Bedside Glucose 251 mg/dL (74-106)
[2024-09-27 23:38] LABS: Bedside Glucose 224 mg/dL (74-106)
[2024-09-27 23:38] LABS: Bedside Glucose 217 mg/dL (74-106)
[2024-09-27 23:38] LABS: Bedside Glucose 267 mg/dL (74-106)
[2024-09-28] VITALS (24 sets, daily range): BP systolic 101–139; BP diastolic 59–103; PULSE 77–102; RESP 13–18; TEMP 35.9–36.9; O2SAT 98–100; BMI 24.2
[2024-09-28] MEDS: Acetaminophen 500 MG Tablet 1000 MG PO ×2 (00:24→19:53)
[2024-09-28 00:44] LABS: Bedside Glucose 211 mg/dL (74-106)
[2024-09-28] MEDS: Dext 5%-0.45% NS 1,000 ML 250 ML IV ×3 (03:15→11:31)
[2024-09-28 03:36] LABS: Anion Gap 19 (5-15); BUN 10 mg/dL (4-19); BUN/Creat Ratio 17.2 RATIO (10-20); Calcium,Total 7.9 mg/dL (7.6-11.0); Carbon Dioxide 6.5 mmol/L (21.0-32.0); Chloride 110 mmol/L (98-108); Creatinine, Serum 0.59 mg/dL (0.70-1.20); EST Glomerular Filtration Rate 128 (>60); Estimated Creatinine Clearance 131.16 ml/min (50-250); Glucose 322 mg/dL (70-99); Potassium 4.2 mmol/L (3.3-5.1); Sodium Level 135 mmol/L (133-145)
[2024-09-28 03:55] LABS: Blood Gas Specimen Type VEN; O2 Delivery Device Room Air; SITE Not entered; VBG BASE EXCESS -18 mmol/L (-1.0-3.5); VBG Bicarbonate 10 mmol/L (22-26); VBG PO2 83 mmHg (25-40); VBG SO2 94 % (50-70); VBG TCO2 11 mmol/L (23-33); VBG pCO2 24.2 mmHg (41-51); VBG pH 7.22 (7.32-7.42)
[2024-09-28 04:21] LABS: Anion Gap 15 (5-15); BUN 9 mg/dL (4-19); BUN/Creat Ratio 14.7 RATIO (10-20); Carbon Dioxide 8.8 mmol/L (21.0-32.0); Chloride 111 mmol/L (98-108); Creatinine, Serum 0.63 mg/dL (0.70-1.20); EST Glomerular Filtration Rate 126 (>60); Estimated Creatinine Clearance 122.83 ml/min (50-250); Glucose 297 mg/dL (70-99); Potassium 3.4 mmol/L (3.3-5.1); Sodium Level 135 mmol/L (133-145)
[2024-09-28 04:39] LABS: Bedside Glucose 266 mg/dL (74-106)
[2024-09-28 04:39] LABS: Bedside Glucose 272 mg/dL (74-106)
[2024-09-28 04:39] LABS: Bedside Glucose 272 mg/dL (74-106)
[2024-09-28 06:10] LABS: Bedside Glucose 259 mg/dL (74-106)
[2024-09-28] MEDS: Potassium Chloride 10mEq/100mL 10 MEQ/100 ML IV.SOLN. 100 MEQ IV BOLUS ×4 (06:39→09:46)
[2024-09-28 08:27] LABS: Anion Gap 11 (5-15); BUN 9 mg/dL (4-19); BUN/Creat Ratio 13.9 RATIO (10-20); Calcium,Total 8.1 mg/dL (7.6-11.0); Carbon Dioxide 11.8 mmol/L (21.0-32.0); Chloride 112 mmol/L (98-108); Creatinine, Serum 0.62 mg/dL (0.70-1.20); EST Glomerular Filtration Rate 127 (>60); Estimated Creatinine Clearance 124.82 ml/min (50-250); Glucose 263 mg/dL (70-99); Potassium 3.6 mmol/L (3.3-5.1); Sodium Level 134 mmol/L (133-145)
[2024-09-28] MEDS: Ondansetron 4 MG/2 ML Vial IV ×2 (08:31→19:53)
[2024-09-28 09:40] LABS: BETA-HYDROXYBUTYRATE 1.8 mmol/L (0.0-0.3)
[2024-09-28] MEDS: Enoxaparin 40 MG/0.4 ML Syringe SC (09:46)
[2024-09-28 09:59] LABS: Bedside Glucose 199 mg/dL (74-106)
[2024-09-28 09:59] LABS: Bedside Glucose 242 mg/dL (74-106)
[2024-09-28 09:59] LABS: Bedside Glucose 255 mg/dL (74-106)
[2024-09-28 12:05] LABS: Anion Gap 10 (5-15); BUN 8 mg/dL (4-19); BUN/Creat Ratio 12.7 RATIO (10-20); Calcium,Total 8.1 mg/dL (7.6-11.0); Carbon Dioxide 14.1 mmol/L (21.0-32.0); Chloride 109 mmol/L (98-108); Creatinine, Serum 0.59 mg/dL (0.70-1.20); EST Glomerular Filtration Rate 128 (>60); Estimated Creatinine Clearance 131.16 ml/min (50-250); Glucose 244 mg/dL (70-99); Potassium 3.7 mmol/L (3.3-5.1); Sodium Level 134 mmol/L (133-145)
[2024-09-28 12:29] LABS: Bedside Glucose 220 mg/dL (74-106)
[2024-09-28 12:46] LABS: Bedside Glucose 196 mg/dL (74-106)
--- NOTE | 2024-09-28 13:07 | CASEMGMT ---
KELLIE BARNES Assessment Face to Face with patient for initial transition planning/care coordination assessment. KELLIE BARNES introduced self and role at [facility], pt voices understanding. Pt is A&Ox4 and is resting comfortably in bed and is calm. Care providers, pharmacy, and demographics verified. Admitting dx: DKA LACE Strata: 2 PCP: No PCP. Resources provided. Pt encouraged to get established LACIE and states understanding Specialists: Dr. Johnson (Endo) Preferred Pharmacy: [facility] Insurance: [facility] Prescription Benefit: Yes LNOK: Ty Maxwell (H) Living Arrangements: Pt lives with her and 3 children (Ages 9, 6, & 3) in a 2 story home with 4 steps to enter ADLs/IADLs: Independent Transportation: self, . Denies concerns DME: Pt states that she received a CBGM as well as an insulin pump x3 weeks ago through [employer]. Pt states that she was advised to call [employer] for the required training and education to get the CBGM and insulin pump set up. Pt states that she has not done this yet as it is an hour and a half long virtual appt. Pt states that she has a manual BGM with sufficient supplies as a back up. Pt states that she has enough pen needles for insulin shots and denies further concerns. HHC/SNF: Denies hx or needs Pt?s goal: home Plan: Home with pt SO, establishment with a PCP, f/u with Endocrinology, and call [employer] for CBGM and insulin pump education. Pt states that she plans to call the [employer] company after DC to get the training needed. Pt states that she feels safe with this plan and denies further questions, concerns, or needs at this time. Mariel Rodriguez RN, CM
--- NOTE | 2024-09-28 13:13 | PN.HOSP_ITS ---
Reason for Visit Reason for Visit: Diagnoses Type 2 diabetes mellitus with ketoacidosis without coma (09/27/24) Objective Data Objective Data Vital Signs: Vital Signs Temp Pulse Resp BP Pulse Ox O2 Del Method 98.4 F 81 13 115/61 100 Room Air 09/28/24 04:00 09/28/24 07:00 09/28/24 07:00 09/28/24 07:00 09/28/24 07:00 09/28/24 07:00 Oxygen Delivery Method Room Air Weight: 145 lb 8.081 oz Body Mass Index (BMI) 24.2 Intake & Output: Intake and Output for Last 24 Hours 09/26/24 09/27/24 09/28/24 23:59 23:59 23:59 Intake Total 3012.92 / 3012.92 2033.0 / 2033.0 Output Total 0 / 0 Balance 3012.92 / 3012.92 2033.0 / 2033.0 Lab / Micro Data 09/27/24 16:45 09/28/24 07:50 Labs: Laboratory Results - last 24 hr 09/27/24 16:45: WBC 29.6 H, RBC 5.54 H, Hgb 15.3 H, Hct 48.6 H, MCV 87.7, MCH 27.6, MCHC 31.5 L, RDW Std Deviation 40.4, RDW Coeff of Alberto 12.5, Plt Count 464 H, MPV 10.9, Immature Gran % (Auto) PHARMACY GRAD INTERN, Neut % (Auto) PHARMACY GRAD INTERN, Lymph % (Auto) PHARMACY GRAD INTERN, [place] % (Auto) PHARMACY GRAD INTERN, Eos % (Auto) PHARMACY GRAD INTERN, Baso % (Auto) PHARMACY GRAD INTERN, Absolute Neuts (auto) 25.8 H, Absolute Lymphs (auto) 2.07, Total Counted 100, Neutrophils % (Manual) 87 H, Lymphocytes % (Manual) 7 L, Monocytes % (Manual) 1, Eosinophils % (Manual) 2, M etamyelocytes % 2 H, Promyelocytes % 1 H, Nucleated RBC % 0, Diff Path Review [place], Platelet Estimate [employer], Sodium 134, Potassium 4.3, Chloride 97 L, C arbon Dioxide 8.4 L*, Anion Gap 29 H, BUN 13, Creatinine 1.06, Estim Creat Clear Calc 73.01, Est GFR (MDRD) Non-Af 75, BUN/Creatinine Ratio 12.5, Glucose 459 H*, Calcium 9.7 09/27/24 18:13: POC Glucose 435 H 09/27/24 19:14: POC Glucose 331 H 09/27/24 19:20: Urine Color Straw, Urine Clarity Clear, Urine pH 5.0, Ur Specific [place] 1.025, Urine Protein 100 H, Urine Glucose (UA) 1000 H, Urine Ketones 150 A*, Urine Occult Blood 10 H, Urine Nitrite Negative, Urine Bilirubin Negative, Urine Urobilinogen Normal, Ur Leukocyte Esterase Negative, Urine RBC 0-5 SEEN, Urine WBC 0-5 SEEN, Ur Squamous Epith Cells 10-25 SEEN, Urine Bacteria 0 SEEN, Urine Mucus 0 SEEN, Urine Test Negative 09/27/24 19:25: Sodium 138 09/27/24 19:25: Sodium 137, Potassium 4.2 09/27/24 19:25: Potassium 4.2, Chloride 107 09/27/24 19:25: Chloride 107, Carbon Dioxide 8.3 L* 09/27/24 19:25: Carbon Dioxide 8.3 L*, Anion Gap 22 H 09/27/24 19:25: Anion Gap 22 H, BUN 13 09/27/24 19:25: BUN 13, Creatinine 0.83 09/27/24 19:25: Creatinine 0.85, Estim Creat Clear Calc 93.24 09/27/24 19:25: Estim Creat Clear Calc 91.04, Est GFR (MDRD) Non-Af 100 09/27/24 19:25: Est GFR (MDRD) Non-Af 97, BUN/Creatinine Ratio 15.6 09/27/24 19:25: BUN/Creatinine Ratio 15.4, Glucose 326 H 09/27/24 19:25: Glucose 324 H, Calcium 8.5 09/27/24 19:25: Calcium 8.3, b-Hydroxybutyric mmol/L 5.4 09/27/24 20:19: POC Glucose 267 H 09/27/24 20:35: Sodium 136, Potassium 4.3, Chloride 108, Carbon Dioxide 7.6 L*, Anion Gap 21 H, BUN 13, Creatinine 0.83, Estim Creat Clear Calc 93.24, Est GFR (MDRD) Non-Af 100, BUN/Creatinine Ratio 15.5, Glucose 304 H, Calcium 8.4 09/27/24 21:13: POC Glucose 224 H 09/27/24 22:09: POC Glucose 217 H 09/27/24 23:15: POC Glucose 251 H 09/28/24 00:18: POC Glucose 211 H 09/28/24 01:00: Sodium 135, Potassium 4.2, Chloride 110 H, Carbon Dioxide 6.5 L* , Anion Gap 19 H, BUN 10, Creatinine 0.59 L, Estim Creat Clear Calc 131.16, Est GFR (MDRD) Non-Af 128, BUN/Creatinine Ratio 17.2, Glucose 322 H, Calcium 7.9 09/28/24 02:16: POC Glucose 272 H 09/28/24 03:18: POC Glucose 272 H 09/28/24 03:45: Sodium 135, Potassium 3.4, Chloride 111 H, Carbon Dioxide 8.8 L* , Anion Gap 15, BUN 9, Creatinine 0.63 L, Estim Creat Clear Calc 122.83, Est GFR (MDRD) Non-Af 126, BUN/Creatinine Ratio 14.7, Glucose 297 H, Calcium 8.0 09/28/24 04:19: POC Glucose 266 H 09/28/24 05:49: POC Glucose 259 H ABG Data ABG results: ABG 09/28/24 03:51 Specimen Type RADHA Sample Site Not entered VBG pH 7.22 L VBG pO2 83 H VBG HCO3 10 L VBG Total CO2 11 L VBG O2 Sat (Calc) 94 H VBG Base Excess -18 L POC Mix VBG pCO2 Pt Tmp 24.2 L O2 Delivery Device Room Air Rhythm Strip Rhythm Strip: Sinus Tach Rate: 109 Ectopy: None Assessment & Plan Assessment/Plan (1) Diabetic ketoacidosis: PLAN: Patient started vomiting, not able to eat probably because of migraine headache for last 3 days probably that might be the precipitating factor for DKA. She states he has type I DKA diagnosed about 2018 when she had the gallbladder stone which caused pancreatic damage resulting in insulin deficiency. She is not clear about genetic testing done for type 1 diabetes mellitus Continue IV fluid D5 half NS and insulin drip till anion gap is closed x 2, below 12. Urine ketones and beta hydroxybutyrate positive. Repeat beta hydroxybutyrate ordered. When she did her gap is been cleared then she can resume her insulin glargine as well as prandial insulin. She has insulin pump at home given by dermatology nurse but it has not been installed and not attached to her. Patient was offered teaching for insulin pump. PLAN: Plan Migraine: Currently improved. Continue with acetaminophen. She states he had tubal ligation. Urine test negative. VTE prophylaxis with enoxaparin. Charges/Coding Visit Charges Inpatient E&M: 26993 [facility] Hosp L3
[2024-09-28] MEDS: Insulin Glargine-YFGN 100 UNIT/ML Pen 12 UNIT SC (13:27)
[2024-09-28 15:19] LABS: Bedside Glucose 287 mg/dL (74-106)
[2024-09-28 15:19] LABS: Bedside Glucose 292 mg/dL (74-106)
[2024-09-28] MEDS: Insulin Lispro 100 UNIT/ML INSULN.PEN 8 UNIT SC (16:22)
[2024-09-28] MEDS: Insulin Lispro 100 UNIT/ML INSULN.PEN SC ×2 (16:23→23:11)
[2024-09-28 16:38] LABS: Bedside Glucose 233 mg/dL (74-106)
[2024-09-28] MEDS: 0.9% Saline Lock 10 ML Syringe IV (23:13)
[2024-09-28 23:31] LABS: Bedside Glucose 267 mg/dL (74-106)
[2024-09-29] VITALS (9 sets, daily range): BP systolic 106–140; BP diastolic 69–97; PULSE 76–109; RESP 13–17; TEMP 35.9–37.2; O2SAT 99–100; BMI 24.1
[2024-09-29] MEDS: proCHLORPERazine 10 MG/2 ML Vial 5 MG IV (02:06)
[2024-09-29] MEDS: Ketorolac 15 MG/ML Vial IV (02:06)
[2024-09-29 03:47] LABS: Bedside Glucose 229 mg/dL (74-106)
[2024-09-29] MEDS: Insulin Lispro 100 UNIT/ML INSULN.PEN SC (06:57)
[2024-09-29 07:10] LABS: Absolute Lymphocyte Count 0.97 X10^3/uL (0.83-4.51); Absolute Neutrophil Count 10.2 X10^3/uL (2.0-7.7); Basophil# 0.07 X10^3/uL; Basophil% 0.6 % (0-1); Eosinophil# 0.01 X10^3/uL; Eosinophils% 0.1 % (0-5); Hematocrit 36.7 % (37-47); Hemoglobin 12.6 g/dL (12.0-15.0); Lymphocyte # 0.97 X10^3/ul (0.83-4.51); Lymphocyte % 7.9 % (19-41); Mean Corpuscular Hgb 27.9 pg (27.0-32.0); Mean Corpuscular Volume 81.2 fL (81-99); Mean Platelet Vol. 10.5 fl (6.2-12.0); Monocyte# 0.91 X10^3/uL; Monocyte% 7.4 % (0-10); NRBC Flagged by Analyzer 0 % (0-5); Neutrophil # 10.19 X10^3/uL (2.7-7.7); Neutrophil % 82.5 % (47-70); Platelet Count 242 K/mm3 (150-450); RBC Distribution Width CV 12.8 % (11.6-14.6); RBC Distribution Width SD 37.3 fl (35.1-43.9); Red Blood Count 4.52 M/mm3 (4.2-5.4); White Blood Count 12.3 K/mm3 (4.4-11.0)
[2024-09-29 07:17] LABS: Bedside Glucose 329 mg/dL (74-106)
[2024-09-29 07:19] LABS: Mean Corp Hgb Conc 34.3 g/dL (32-36)
[2024-09-29 07:29] LABS: Anion Gap 17 (5-15); BUN 7 mg/dL (4-19); BUN/Creat Ratio 12.9 RATIO (10-20); Calcium,Total 8.2 mg/dL (7.6-11.0); Carbon Dioxide 10.1 mmol/L (21.0-32.0); Chloride 108 mmol/L (98-108); Creatinine, Serum 0.58 mg/dL (0.70-1.20); EST Glomerular Filtration Rate 129 (>60); Estimated Creatinine Clearance 133.42 ml/min (50-250); Glucose 306 mg/dL (70-99); Potassium 3.6 mmol/L (3.3-5.1); Sodium Level 136 mmol/L (133-145)
--- NOTE | 2024-09-29 07:41 | DCINST_ITS ---
Discharge Instructions Diet Discharge Diet: 1800 Calorie Control Diet DC O2, CPAP, BIPAP needs Home O2 Discharge instructions: No Dressing / Incision Discharge Activity: Return to Normal Activity Weight Bearing Status: Weight bearing as tolerated Dressing / Incision Call your doctor if you observe: Fever of 101 or Higher, Coldness, Increased Pain, Numbness or Tingling, Change in Color, Inability to urinate, Inability to have a bowel movement, Shortness of breath, Dizziness, Fainting spells, Swelling in the ankles, Chest pain, Prolonged hiccupping, Increased palpitations (irregular heartbeat) and Calf discomfort Follow Up Care When: IN 2 WEEKS Test Results: Test results from this visit will be discussed in further detail at your follow- up appointment, if applicable. Discharge Plan Admission Admit Date/Time: 09/27/24 19:05 Primary Reason for Your Visit: DKA Attending Provider: Tate Constantino Primary Care Provider: Care Physician,No Primary Consulting Providers: Jossue Muro Discharge Orders/Prescriptions Prescriptions: Continued insulin glargine [Lantus Solostar U-100 Insulin] 100 unit/mL (3 mL) insulin pen 15 unit subcut QAM Qty: 15 6RF (DME) Omnipod 5 Intro(G6/[id number]) Cartridge See Rx Instructions .Route Qty: 1 0RF Rx Instructions: As directed (DME) FreeStyle Adan 2 Plus Sensor Device See Rx Instructions .Route Qty: 2 6RF Rx Instructions: As directed acetaminophen 500 mg tablet 1,000 mg PO Q6H PRN (Reason: pain) (DME) OneTouch Verio test strips Strip See Rx Instructions .Route Qty: 150 6RF Rx Instructions: 4 times daily (DME) FreeStyle Adan 3 Plus Sensor Device See Rx Instructions .Route Qty: 2 6RF Rx Instructions: As directed (DME) FreeStyle Adan 3 Sensor Device See Rx Instructions .Route Qty: 2 6RF Rx Instructions: 1 sensor q 14 days insulin aspart U-100 [Novolog FlexPen U-100 Insulin] 100 unit/mL (3 mL) insulin pen 12 unit subcut TID Qty: 12 6RF (DME) pen needle, diabetic [BD Ultra-Fine Loyda Pen Needle] 32 gauge x 5/32 needle See Rx Instructions .ROUTE .MEDSUPPLY Qty: 150 4RF Rx Instructions: 4 times daily Referrals / Follow Up: Care Physician,No Primary [Primary Care Provider] - Em Rai PA [Non-Staff] - Disposition Disposition (needs filled in before D/C Order can be placed): Home, Self Care
--- NOTE | 2024-09-29 07:43 | DS.PCM_ITS ---
Providers Date of Admission: 09/27/24 Date of Discharge: 09/29/24 Primary Care Physician: No Primary Care Phys Reason For Visit: DKA Diagnosis Discharge Diagnosis (1) Diabetic ketoacidosis: Status: Acute Code(s): E11.10 - Type 2 diabetes mellitus with ketoacidosis without coma Plan: Patient started vomiting, not able to eat probably because of migraine headache for last 3 days probably that might be the precipitating factor for DKA. 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 She is not clear about genetic testing done for type 1 diabetes mellitus Continue IV fluid D5 half NS . Urine ketones and beta hydroxybutyrate positive. Patient had anion gap closed x 2. Scheduled Lantus and Humalog insulin were given as per protocol with insulin drip overlap for 4 hours. Repeat beta- hydroxybutyrate were better but mildly elevated Patient has insulin pump at home and feels confident does not need any education. She has seating and mobility technologist to follow. Plan Migraine: Currently improved. Continue with acetaminophen. She had headache yesterday and got better with Tylenol. She states she gets headache twice a month and yesterday was double-sided along with symptoms nausea he cough and vomiting. Advised to follow with PCP but seems he does not have PCP from the chart. She states he had tubal ligation. Urine test negative. VTE prophylaxis with enoxaparin. Medications at Discharge Home Medications insulin glargine 100 unit/mL (3 mL) subcutaneous pen (Lantus Solostar U-100 Insulin) 15 unit (0.15 mL) subcut QAM #15 mL 11/30/23 OneTouch Verio test strips (blood sugar diagnostic) #150 ea 01/04/24 blood-glucose sensor (FreeStyle Adan 3 Plus Sensor device) #2 ea 02/02/24 FreeStyle Adan 3 Sensor (blood-glucose sensor) #2 ea 08/01/24 insulin aspart U-100 100 unit/mL (3 mL) subcutaneous pen (Novolog FlexPen U-100 Insulin aspart) 12 unit (0.12 mL) subcut TID #12 mL 08/01/24 pen needle, diabetic 32 gauge x 5/32 (BD Ultra-Fine Loyda Pen Needle) #150 ea 08/01/24 FreeStyle Adan 2 Plus Sensor (blood-glucose sensor) #2 ea 08/05/24 insulin pump cartridge,auto dose,BT,G6/L2 with controller subcutaneous (Omnipod 5 Intro Kit(G6/[id number]) subcutaneous cartridge) #1 ea 08/05/24 acetaminophen 500 mg tablet 1,000 mg PO Q6H PRN pain 09/27/24 Physical Exam Narrative Patient had headache yesterday and got better and resolved with Tylenol. States he did not move all for 3 to 4 days and was offered MiraLAX/other laxative but she said she does not need it and will move bowel. Feels confident about discharge. Physical exam General: Alert, Oriented x3, Cooperative HEENT: Atraumatic, PERRLA, EOMI, Normocephalic. Oral: Oral mucosa moist no Gingival or Mucosal Lesions/ Ulcerations Neck: Supple, No JVD, Negative Carotid Bruits Chest wall/Lungs: Air entry in bilateral lung bases. No crepitation/rhonchi Cardiovascular: Regular rate and rhythm, Normal S1,S2, No M/G/R Abdomen: Bowel Sounds Present, Soft, Non Tender, Non-Distended : No dysuria. No renal angle tenderness. No suprapubic tenderness. Extremities: No edema, Capillary Refill Less than 3 Seconds Skin: No rashes, No breakdown Musculoskeletal: No Tenderness to Palpation of Joints or Extremities Neurological: Cranial nerves II-XII grossly intact, DTR 2+/4. No acute focal neurological deficit. Psych/Mental Status: Normal Affect, Appropriate. Weight / BMI Weight Weight: 145 lb 1.027 oz Body Mass Index (BMI) 24.1 ABG / Lab / Microbiology Data 09/29/24 07:00 09/29/24 07:00 Laboratory: Laboratory Results - last 24 hr 09/28/24 01:12: POC Glucose 292 H 09/28/24 01:14: POC Glucose 287 H 09/28/24 07:49: POC Glucose 255 H 09/28/24 07:50: Sodium 134, Potassium 3.6, Chloride 112 H, Carbon Dioxide 11.8 L , Anion Gap 11, BUN 9, Creatinine 0.62 L, Estim Creat Clear Calc 124.82, Est GFR (MDRD) Non-Af 127, BUN/Creatinine Ratio 13.9, Glucose 263 H, Calcium 8.1, b- Hydroxybutyric mmol/L 1.8 09/28/24 08:29: POC Glucose 242 H 09/28/24 09:41: POC Glucose 199 H 09/28/24 11:27: POC Glucose 220 H 09/28/24 11:30: Sodium 134, Potassium 3.7, Chloride 109 H, Carbon Dioxide 14.1 L , Anion Gap 10, BUN 8, Creatinine 0.59 L, Estim Creat Clear Calc 131.16, Est GFR (MDRD) Non-Af 128, BUN/Creatinine Ratio 12.7, Glucose 244 H, Calcium 8.1 09/28/24 12:29: POC Glucose 196 H 09/28/24 16:19: POC Glucose 233 H 09/28/24 23:10: POC Glucose 267 H 09/29/24 03:25: POC Glucose 229 H 09/29/24 06:54: POC Glucose 329 H 09/29/24 07:00: WBC 12.3 H, RBC 4.52, Hgb 12.6, Hct 36.7 L, MCV 81.2 D, MCH 27.9, MCHC 34.3 D, RDW Std Deviation 37.3, RDW Coeff of Alberto 12.8, Plt Count 242, MPV 10.5, Immature Gran % (Auto) 1.500 H, Neut % (Auto) 82.5 H, Lymph % (Auto) 7.9 L, [place] % (Auto) 7.4, Eos % (Auto) 0.1, Baso % (Auto) 0.6, Absolute Neuts (auto) 10.2 H, Absolute Lymphs (auto) 0.97, Nucleated RBC % 0, Sodium 136, Potassium 3.6, Chloride 108, Carbon Dioxide 10.1 L, Anion Gap 17 H, BUN 7, C reatinine 0.58 L, Estim Creat Clear Calc 133.42, Est GFR (MDRD) Non-Af 129, BUN/Creatinine Ratio 12.9, Glucose 306 H, Calcium 8.2 D/C Instructions Discharge Diet: 1800 Calorie Control Diet Weight Bearing Status: Weight bearing as tolerated Call your doctor if you observe: Fever of 101 or Higher, Coldness, Increased Pain, Numbness or Tingling, Change in Color, Inability to urinate, Inability to have a bowel movement, Shortness of breath, Dizziness, Fainting spells, Swelling in the ankles, Chest pain, Prolonged hiccupping, Increased palpitations (irregular heartbeat) and Calf discomfort DC O2, CPAP, BIPAP Needs Home O2 Discharge instructions: No When: IN 2 WEEKS Meaningful Use Info Meaningful Use Meaningful Use Diagnoses (Choose all that apply): None applicable Ischemic Stroke Statin Dosing Therapy Reference: STATIN DOSE THERAPY REFERENCE: * Patients > 75 years receive moderate or high dose statin therapy. * Patients 75 years or YOUNGER should receive HIGH intensity statin dose unless contraindicated. You will be required to document reason for non-treatment if statin daily dose does not meet guidelines. HIGH DOSE STATIN THERAPY DAILY Atorvastatin > than or = to 40 mg Rosuvastatin > than or = to 20 mg Amlodipine + Atorvastatin > than or = to 2.5/40 mg Ezetimibe + Simvastatin 10/80 mg Simvastatin 80mg Discharge Plan Admission Admit Date/Time: 09/27/24 19:05 Primary Reason for Your Visit: DKA Attending Provider: Tate Constantino Primary Care Provider: Care Physician,No Primary Consulting Providers: Jossue Muro Discharge Orders/Prescriptions Prescriptions: Continued insulin glargine [Lantus Solostar U-100 Insulin] 100 unit/mL (3 mL) insulin pen 15 unit subcut QAM Qty: 15 6RF (DME) Omnipod 5 Intro(G6/[id number]) Cartridge See Rx Instructions .Route Qty: 1 0RF Rx Instructions: As directed (DME) FreeStyle Adan 2 Plus Sensor Device See Rx Instructions .Route Qty: 2 6RF Rx Instructions: As directed acetaminophen 500 mg tablet 1,000 mg PO Q6H PRN (Reason: pain) (DME) OneTouch Verio test strips Strip See Rx Instructions .Route Qty: 150 6RF Rx Instructions: 4 times daily (DME) FreeStyle Adan 3 Plus Sensor Device See Rx Instructions .Route Qty: 2 6RF Rx Instructions: As directed (DME) FreeStyle Adan 3 Sensor Device See Rx Instructions .Route Qty: 2 6RF Rx Instructions: 1 sensor q 14 days insulin aspart U-100 [Novolog FlexPen U-100 Insulin] 100 unit/mL (3 mL) insulin pen 12 unit subcut TID Qty: 12 6RF (DME) pen needle, diabetic [BD Ultra-Fine Loyda Pen Needle] 32 gauge x 5/32 needle See Rx Instructions .ROUTE .MEDSUPPLY Qty: 150 4RF Rx Instructions: 4 times daily Referrals / Follow Up: Care Physician,No Primary [Primary Care Provider] - Em Rai, PA [Non-Staff] - Disposition Disposition (needs filled in before D/C Order can be placed): Home, Self Care Charges/Coding Visit Charges Inpatient E&M: 47776 Disch Hosp >30min
[2024-09-29 07:59] LABS: Hemoglobin A1c 14.7 % (<=5.6)
[2024-09-29] MEDS: Insulin Lispro 100 UNIT/ML INSULN.PEN 8 UNIT SC (08:33)
--- NOTE | 2024-09-29 09:35 | CASEMGMT ---
KELLIE BARNES NOTE: Discharge order is in. RN CM to room. Pt resting in bed, @ bedside. Pt states she is happy to be going home. She declines needing/wanting assistance w/getting established w/PCP. She plans to f/u with Dr Johnson & also verifies she plans to schedule virtual training w/[employer] for CGM and insulin pump. She denies having any discharge needs or concerns. Phillip PERAZA RN CM
== END 2024-09-29 09:57 | disposition home or self-care (01) | DRG 420 ==
LOC: ED 18:30 → ICU 19:20
PROVIDERS: Emergency Provider Emergency Medicine; Visit Provider Internal Medicine
DX: E10.10 Type 1 diabetes mellitus with ketoacidosis without coma (principal); E88.818 Other insulin resistance; Z79.4 Long term (current) use of insulin; G43.909 Migraine, unspecified, not intractable, without status migrainosus; D72.829 Elevated white blood cell count, unspecified; A08.4 Viral intestinal infection, unspecified; Z86.718 Personal history of other venous thrombosis and embolism; Z88.8 Allergy status to other drugs, medicaments and biological substances; Z87.19 Personal history of other diseases of the digestive system; Z96.41 Presence of insulin pump (external) (internal); Z98.51 Tubal ligation status
CPT/HCPCS: 36415; 80048; 81001; 81025; 82010; 82803; 82962; 83036; 85025; 93005; 99285; A4216; J2405